=== PATIENT | female | born 1950 | race Caucasian/White ===

== ENCOUNTER 2017-12-10 11:23 | Emergency (ER) | payer OTHER ==
[~2017-12-10] VITALS: Ht 157.5 cm; Wt 82.6 kg
--- NOTE | 2017-12-10 11:36 | NUR ---
PT REC'D TO ER VIA EMS C/O RT HIP PAIN 05/03 WAS TURNING ON THE COUCH . THIS HAPPENED 6 WEEKS AGO . IV STARTED 20G IV SITE RT [facility]
[2017-12-10] MEDS ORDERED: ONDANSETRON HCL/PF 4 MG/2 ML VIAL IV ONE (12:00)
[2017-12-10] MEDS ORDERED: MORPHINE SULFATE INJ 2 MG/ML DISP.SYRIN IV ONE ×2 (12:00→13:30)
[2017-12-10] MEDS ORDERED: ONDANSETRON HCL/PF 4 MG/2 ML VIAL ONE ×2 (12:01→12:46)
[2017-12-10] MEDS ORDERED: MORPHINE SULFATE INJ 4 MG/ML DISP.SYRIN ONE ×2 (12:01→12:10)
--- NOTE | 2017-12-10 12:06 | NUR ---
MEDS GIVEN PER MD XRAY DONE
[2017-12-10] MEDS ORDERED: ETOMIDATE 2 MG/ML VIAL ONE (12:10)
[2017-12-10] MEDS ORDERED: MIDAZOLAM HCL 2 MG/2ML VIAL ONE (12:32)
[2017-12-10] MEDS ORDERED: ETOMIDATE 2 MG/ML VIAL IV ONE (13:30)
[2017-12-10] MEDS ORDERED: MIDAZOLAM HCL 2 MG/2ML VIAL IV ONE (13:30)
--- NOTE | 2017-12-10 13:51 | NUR ---
PT TOLERATING POS WELL UP AMB WITH CRUTCHES STATED FEELING BETTERAWAITING EVALUATION BY ER PROVIDER.
--- NOTE | 2017-12-10 13:52 | NUR ---
Patient discharged to home in stable condition. Written and verbal after care instructions given. Patient verbalizes understanding of instruction.
--- NOTE | 2017-12-10 13:52 | NUR ---
PT. VERBALIZED UNDERSTANDING OF AFTERCARE INSTRUCTIONS.Patient discharged to home in stable condition. Written and verbal after care instructions given. Patient verbalizes understanding of instruction.
[2017-12-10 14:11] VITALS: BP 117/67
== END 2017-12-10 15:48 | disposition home or self-care (01) ==
LOC: ER 11:25 → EDBD 11:25 → ER 15:48
DX: T84.020A Dislocation of internal right hip prosthesis, initial encounter (principal); Y79.2 Prosthetic and other implants, materials and accessory orthopedic devices associated with adverse incidents; I10 Essential (primary) hypertension; I25.10 Atherosclerotic heart disease of native coronary artery without angina pectoris; Z95.5 Presence of coronary angioplasty implant and graft; X58.XXXA Exposure to other specified factors, initial encounter; Y93.89 Activity, other specified; Y92.89 Other specified places as the place of occurrence of the external cause; Y99.8 Other external cause status
CPT/HCPCS: 73501; A4606; J2250; J2270; J2405; J3490; J7030; Z7610